=== PATIENT | female | born 1990 | race Caucasian/White ===

== ENCOUNTER → 2019-07-31 | Outpatient (REF) | payer OTHER ==
[2019-07-31 19:04] LABS: INFLUENZA A AMPLIFICATION NEGATIVE (NEGATIVE); INFLUENZA B AMPLIFICATION NEGATIVE (NEGATIVE)
== END ==
LOC: M LAB REF 18:17
PROVIDERS: ATTEND Physician Assistant
DX: J11.1 Influenza due to unidentified influenza virus with other respiratory manifestations (principal)

== ENCOUNTER → 2020-05-20 | Outpatient (REF) | payer OTHER | LOC: M LAB REF 11:24 | PROVIDERS: ATTEND Physician Assistant | DX: J02.9 Acute pharyngitis, unspecified (principal) ==

== ENCOUNTER → 2022-09-10 | Outpatient (REF) | payer OTHER ==
[2022-09-10 17:34] LABS: APPEARANCE, URINE HAZY (CLEAR); BACTERIA, URINE AUTO NEGATIVE (NEGATIVE); BILIRUBIN, URINE AUTO NEGATIVE (NEGATIVE); BLOOD, URINE BLOOD 1+ (NEGATIVE); COLOR, URINE YELLOW (YELLOW); GLUCOSE, URINE (UA) AUTO NEGATIVE (NEGATIVE); KETONE, URINE AUTO NEGATIVE (NEGATIVE); LEUKOCYTE ESTERASE, URINE AUTO NEGATIVE (NEGATIVE); MUCUS, URINE SMALL (NEGATIVE); NITRITE, URINE AUTO NEGATIVE (NEGATIVE); PROTEIN, URINE AUTO NEGATIVE (NEGATIVE); RBC, URINE AUTO 0 /HPF (0-3); SPECIFIC GRAVITY URINE AUTO 1.028 (1.002-1.035); SQUAMOUS EPITHELIAL CELL UR AU 3 /HPF (0-6); UROBILINOGEN, URINE AUTO 0.2 mg/dL (0.0-2.0); WBC, URINE AUTO 2 /HPF (0-3)
== END ==
LOC: M LAB REF 17:17
PROVIDERS: ATTEND Physician Assistant Medical
DX: N39.0 Urinary tract infection, site not specified (principal)

== ENCOUNTER → 2022-09-23 | Outpatient (REF) | payer OTHER | LOC: M LAB REF 16:09 | PROVIDERS: ATTEND Physician Assistant | DX: N89.8 Other specified noninflammatory disorders of vagina (principal) ==

== ENCOUNTER → 2024-07-23 | Outpatient (REF) | payer OTHER | LOC: M LAB REF 16:16 | PROVIDERS: ATTEND Physician Assistant Medical | DX: B34.9 Viral infection, unspecified (principal); J02.9 Acute pharyngitis, unspecified ==